=== PATIENT | female | born 1960 | race Caucasian/White ===

== ENCOUNTER 2016-11-02 08:53 | Outpatient (CLI) | payer BC | END 2016-11-02 19:24 | disposition home or self-care (01) | LOC: SMA 08:53 | DX: N63 Unspecified lump in breast (principal) | CPT/HCPCS: 76642; G0204 ==

== ENCOUNTER 2018-12-07 10:13 | Outpatient (CLI) | payer OTHER, MEDICAID | END 2018-12-07 21:10 | disposition home or self-care (01) | LOC: SMA 10:13 | PROVIDERS: ATTEND Family Medicine | DX: Z12.31 Encounter for screening mammogram for malignant neoplasm of breast (principal) | CPT/HCPCS: 77067 ==